=== PATIENT | female | born 1955 | race Caucasian/White ===

== ENCOUNTER 2024-07-22 07:14 | Outpatient (CLI) | payer OTHER, SELFPAY ==
--- NOTE | 2024-07-22 07:20 | USCV_ITS ---
Grace Mooney Age: 69 Gender: F : 1955 Exam Date: 07/22/2024 07:38 Ordering Phys: Narinder Valerio MD Technologist: Kike Vidal Exam Location: [facility] [place] Indication: systolic murmur BP: 122 / 90 HR: 66 Rhythm: Sinus Technical Quality: Adequate MEASUREMENTS (Male / Female) Normal Values 2D ECHO LV Diastolic Diameter PLAX 3.6 cm 4.2 - 5.9 / 3.9 - 5.3 cm IVS Diastolic Thickness 0.9 cm 0.6 - 1.0 / 0.6 - 0.9 cm IVS Systolic Thickness 1.1 cm LVPW Diastolic Thickness 1.4 cm 0.6 - 1.0 / 0.6 - 0.9 cm LVPW Systolic Thickness 2.1 cm LVOT Diameter 2.0 cm LV Ejection Fraction 2D Teich 61.1 % LV Ejection Fraction MOD 4C 63.6 % LV Ejection Fraction MOD 2C 67.6 % LV Ejection Fraction 2C AL 69.3 % LA Diameter 3.6 cm RA Systolic Volume 4C AL 32.8 ml RA Systolic Volume 4C MOD 33.7 ml LA Sys Volume AL 48.6 cm cubed LA Sys Volume Index AL 23.5 cm cubed/m squared Aorta at Sinotubular Diameter 1.8 cm IVC Diameter 1.7 cm M-MODE LA Ao Ratio MM 1.2 AV Cusp Separation MM 1.5 cm DOPPLER AV Peak Velocity 211.7 cm/s LVOT Peak Velocity 116.0 cm/s AV Area Cont Eq vti 1.7 cm squared AV Area Cont Eq pk 1.7 cm squared MV Peak Velocity 136.0 cm/s MV Area PHT 6.5 cm squared Mitral E to A Ratio 0.8 TR Peak Velocity 210.0 cm/s TR Peak Gradient 17.6 mmHg TR Mean Velocity 158.0 cm/s TR Mean Gradient 11.1 mmHg TR Velocity Time Integral 64.0 cm PV Peak Velocity 78.7 cm/s RV Ejection Time 0.3 s FINDINGS Left Ventricle Normal left ventricular size and systolic function, EF 65%.no regional wall motion abnormalities. Mild left ventricular hypertrophy. No regional wall motion abnormalities. Grade I/IV diastolic dysfunction (abnormal relaxation filling pattern), normal to mildly elevated filling pressures. Right Ventricle The right ventricle is normal in size and function. Right Atrium The right atrium is normal in size. Left Atrium Mildly increased left atrial size. Mitral Valve Trace mitral valve regurgitation. Aortic Valve Minimally thickened aortic valve.trace aortic valve regurgitation. Tricuspid Valve No gross abnormalities noted Pulmonic Valve Trace pulmonary valve regurgitation. Pericardium Normal pericardium without effusion. Aorta Normal aortic annulus size. IVC Inferior vena cava not visualized. CONCLUSIONS No similar previous studies are available for comparisonNormal left ventricular size and systolic function, EF 65%.no regional wall motion abnormalities. Mild left ventricular hypertrophy. No regional wall motion abnormalities. Grade I/IV diastolic dysfunction (abnormal relaxation filling pattern), normal to mildly elevated filling pressures. Mildly increased left atrial size. Trace mitral valve regurgitation. Minimally thickened aortic valve.trace aortic valve regurgitation. Trace mitral valve regurgitation. There is no pericardial effusion. There are no intracardiac masses. Dr Jeanie Mercado MD FACC (Electronically Signed) Final Date: 22 July 2024 12:59 S
== END 2024-07-22 07:15 | disposition home or self-care (01) ==
LOC: RAD 07:14
PROVIDERS: Visit Provider Family Medicine
DX: R01.1 Cardiac murmur, unspecified (principal); I08.0 Rheumatic disorders of both mitral and aortic valves
CPT/HCPCS: 93306

== ENCOUNTER 2024-08-10 11:15 | Outpatient (CLI) | payer MEDICARE, SELFPAY ==
--- NOTE | 2024-08-10 11:20 | MM_ITS ---
WS: [id number] BILATERAL SCREENING DIGITAL TOMOSYNTHESIS MAMMOGRAM WITH CAD HISTORY: SCREENING COMPARISON: 04/22/2022, 09/17/2020 Bilateral CC and MLO views with tomosynthesis and synthetic mammography submitted. Computer aided det ection analyzed. Breast composition: The breasts are almost entirely fatty. No suspicious masses, microcalcifications or architectural distortion. Benign calcifications and arterial calcifications in each breast. MM/MM scr BI tomosynthesis [id number] IMPRESSION: BI-RADS: 2 - Benign. FOLLOW UP: 1 Year Follow-up
== END 2024-08-10 11:16 | disposition home or self-care (01) ==
PROVIDERS: PCP Family Medicine; Visit Provider Family Medicine
DX: Z12.31 Encounter for screening mammogram for malignant neoplasm of breast (principal); R92.313 Mammographic fatty tissue density, bilateral breasts; R92.1 Mammographic calcification found on diagnostic imaging of breast
CPT/HCPCS: 77063; 77067

== ENCOUNTER 2025-06-23 08:32 | Outpatient (CLI) | payer MEDICARE, SELFPAY ==
--- NOTE | 2025-06-23 08:51 | MRR_ITS ---
PROCEDURE INFORMATION: Exam: MR Right Lower Extremity Without Contrast, Femur Exam date and time: 06/23/2025 8:47 AM Age: 70 years old Clinical indication: Right; RT sided thigh pain knee pain that radiates up and down leg. No traumatic injury. Was painful after getting up from a seated position for hours with legs turned to side of seat. ; Additional info: RT quad tear TECHNIQUE: Imaging protocol: Magnetic resonance imaging of the right femur without contrast. COMPARISON: No relevant prior studies available. FINDINGS: Bones/joints: There is a peripherally sclerotic nonaggressive appearing bone lesion measuring 8.9 x 2.1 x 2.0 cm centered in the distal femoral diametaphysis. No periosteal reaction, endosteal scalloping, cortical breakthrough or soft tissue mass. Knee alignment is normal. There is no bone marrow edema. There is a large knee effusion. Tendons: Quadriceps and patellar tendons are suboptimally visualized but are grossly intact. Soft tissues: Musculature in the thigh is unremarkable. No soft tissue edema or fluid. MR/MR femur RT wo con* [id number] IMPRESSION: 1. No sign of significant muscular or tendinous injury. 2. Large knee effusion. 3. 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 Recommend follow-up radiographs for confirmation.
== END 2025-06-23 08:33 | disposition home or self-care (01) ==
LOC: RAD 08:33
PROVIDERS: PCP Family Medicine; Visit Provider Family Medicine
DX: M79.604 Pain in right leg (principal); M25.461 Effusion, right knee
CPT/HCPCS: 73718

== ENCOUNTER → 2025-08-02 11:10 | Outpatient (BNVA) | payer MEDICARE, SELFPAY | PROVIDERS: PCP Family Medicine; Visit Provider Student in an Organized Health Care Education/Training Program | DX: M17.11 Unilateral primary osteoarthritis, right knee (principal); D16.21 Benign neoplasm of long bones of right lower limb | CPT/HCPCS: 99204 ==